=== PATIENT | female | born 1960 | race Caucasian/White ===

== ENCOUNTER 2018-03-31 06:17 | Day surgery (SDC) | payer OTHER ==
[2018-03-30 15:19] VITALS: BMI 28.5
[2018-03-31] MEDS ORDERED: ROPIVACAINE HCL 0.5% 30ML VIAL ONE (07:24)
[2018-03-31] MEDS ORDERED: DEXAMETHASONE SOD PHOSPHATE/PF 10 MG/ML SDV ONE (07:24)
[2018-03-31] MEDS ORDERED: MIDAZOLAM HCL 2 MG/2 ML SINGLE DOSE VIAL ONE ×4 (07:26→07:30)
[2018-03-31] MEDS ORDERED: DEXAMETHASONE SOD PHOSPHATE 4 MG/1 ML VIAL ONE (07:28)
[2018-03-31] MEDS ORDERED: ceFAZolin SODIUM 1 GM VIAL ONE (07:28)
[2018-03-31] MEDS ORDERED: LIDOCAINE HCL/PF 2% SDV 5ML VIAL ONE (07:28)
[2018-03-31] MEDS ORDERED: SODIUM CHLORIDE 0.9% P/F 10 ML VIAL IJ ONE (07:28)
[2018-03-31] MEDS ORDERED: ONDANSETRON 4 MG/2 ML VIAL ONE (07:28)
[2018-03-31] MEDS ORDERED: SUCCINYLCHOLINE CHLORIDE 200 MG/10 ML VIAL ONE (07:30)
[2018-03-31] MEDS ORDERED: PROPOFOL 20 ML ONE ×4 (07:30→08:45)
[2018-03-31] MEDS ORDERED: DEXMEDETOMIDINE HCL 200 MCG/2 ML ML IVPB ONE (07:37)
[2018-03-31] MEDS ORDERED: DESFLURANE GAS 240 ML BOTTLE IH ONE (07:37)
--- NOTE | 2018-03-31 08:06 | HP ---
Satellite H - Chief Complaint Chief Complaint: right shoulder pain - Past Medical History Allergies/Adverse Reactions: Allergies Allergy/AdvReac Type Severity Reaction Status Date / Time No Known Allergies Allergy Verified 03/30/18 15:19 - Current Medications Current Medications: Home Medications Medication Instructions Recorded Escitalopram Oxalate [Lexapro -] 20 mg PO DAILY 03/30/18 Levothyroxine [Synthroid -] 100 mcg PO DAILY 03/30/18 Lisinopril/Hydrochlorothiazide 1 each PO DAILY 03/30/18 [Lisinopril-Hctz 20-25 mg Tab] Alprazolam [Xanax] 0.5 mg PO TID 03/31/18 Meloxicam [Mobic] 15 mg PO DAILY 03/31/18 Oxycodone HCl/Acetaminophen 1 - 2 tab PO Q6H #30 tab MDD 6 03/31/18 [Percocet 5-325 mg Tablet] Zolpidem Tartrate [Ambien] 5 mg PO HS 03/31/18 Satellite Physical Exam - Physical Examination Vital Signs: Vital Signs Period Temp Pulse Resp BP Sys/Hicks Pulse Ox Last 24 Hr 97.9 F 84 18 99/66 General Appearance: Well Nourished, Well Developed, Alert & Oriented x3 ENT: Clear Lung: Normal air movement Heart: Regular rate & rhythm Extremities: Other (right shoulder- + ttp, decr rom , + empty can, + neer, + blackwood, nvi MRI + rct) Neurological: Intact, Alert, Oriented Satellite Impression/Plan - Impression/Plan Impression: right shoulder rct Operative Procedure: right shoulder arthroscopy with DEE BARNEY Date to be Performed: 03/31/18
[2018-03-31] MEDS ORDERED: ceFAZolin SODIUM 1 GM VIAL IVPB ONE (08:29)
[2018-03-31] MEDS ORDERED: ONDANSETRON 4 MG/2 ML VIAL IVPUSH PRN (08:46)
[2018-03-31] MEDS ORDERED: oxyCODONE HCL 5 MG TABLET PO PRN ×2 (08:46)
[2018-03-31] MEDS ORDERED: LACTATED RINGERS SOLUTION 1,000 ML IV SCH (09:00)
--- NOTE | 2018-03-31 09:08 | OP ---
Operative Note - Note: Operative Date: 03/31/18 ([facility]) Pre-Operative Diagnosis: right shoulder rct Operation: right shoulder arthroscopy with RCR, SAD Implants: 2 arthrex swivelocks Post-Operative Diagnosis: Same as Pre-op Surgeon: Natanael Grady Intake Coordinator: Oleg Tolliver) Anesthesiologist/CROP PEST CONTROL SPECIALIST: Neville Thomas Anesthesia: General, Local Specimens Removed: shavings Estimated Blood Loss (mls): 5 Operative Report Dictated: Yes
--- NOTE | 2018-03-31 11:41 | OP ---
DATE OF OPERATION: 03/31/2018 PREOPERATIVE DIAGNOSIS: Right rotator cuff tear. POSTOPERATIVE DIAGNOSIS: Right rotator cuff tear. PROCEDURE: Arthroscopy right shoulder, subacromial decompression, and arthroscopic right rotator cuff repair. SURGICAL ATTENDING: Natanael Grady MD RESTAURANT MANAGER: BOO Mejia, and Oleg Tolliver MD ANESTHESIA: Regional and general. CLOSURE: FiberWire and SwiveLock for rotator cuff, 3-0 nylon for skin. ESTIMATED BLOOD LOSS: Negligible. COMPLICATIONS: None. CONDITION: To the recovery room in stable condition. DESCRIPTION OF PROCEDURE: Patient taken to the operating room on March 31, 2018. Regional and general anesthesia was administered by the anesthesiologist. IV Kefzol was administered prophylactically prior to the case. The patient was placed in the beach chair position with all prominences well padded. Right shoulder area was prepped and draped in the usual sterile fashion. The posterior portal was made two fingerbreadths below the acromion first with a 15 blade then followed by a blunt trocar. Circumferential exam of the glenohumeral joint revealed the following: Significant glenohumeral joint loss of cartilage was seen throughout much of the humeral head and most of the glenoid as well and the joint was located; the labrum was intact. The biceps tendon was intact, as was its anchor. Subscapularis was intact through insertion. Looking superiorly, the supraspinatus was found to be very, very thin at its insertion. The rest of the rotator cuff tear was intact. The fluid was drained from the shoulder, trocar was removed. The posterior trocar was redirected in the subacromial space. Accessory lateral portal was made with a 15 blade followed by a blunt trocar. The bursal tissue in the subacromial space was debrided using the shaver. The large anterior spur on the acromion was debrided, giving sufficient height and space in the subacromial space. Coracoacromial ligament was left in situ due to the glenohumeral joint arthritis. Looking inferiorly, scar encasing the humeral head was debrided using the shaver and the ArthroCare device. The supraspinatus was found to be holding on by less than 5% of its thickness. This was completed using the shaver, exposing the greater tuberosity. the rotator cuff was burred with the bur to stimulate some bleeding bone. Multiple sutures were placed in horizontal mattress fashion through the supraspinatus and they were fixated to the greater tuberosity using two SwiveLock anchors. This pulled down the sutures snug and matting down to the greater tuberosity to the bleeding bone surface. Sutures were cut flush. Post-fixation, the shoulder was taken through range of motion and found to have no undue tension on the subacromial space and excellent clearance. The fluid was drained from the shoulder. The trocars were removed. The portals were closed with 3-0 nylon suture. A sterile pressure dressing followed by a shoulder immobilizer was applied. The patient was awoken from anesthesia and transferred to recovery room in stable condition. No complications. Estimated blood loss negligible. Oleg Tolliver MD, dictating for MD NATANAEL Khalil M.D. [id number]
[2018-03-31 14:48] VITALS: BP 112/60; PULSE 81; TEMP 97.9
--- NOTE | 2018-04-06 18:19 | PATH ---
Surgical Pathology Report Patient Name: MELLISSA HUANG [facility]. Rec. #: [id number] /Age/Gender: 1960 (Age: 57) / F Account: [id number] Location: [facility] SURGICAL Taken: 03/31/2018 Received: 03/31/2018 Reported: 04/06/2018 Physicians: Fidel Horton M.D. Specimen(s) Received RIGHT SHOULDER SHAVINGS Clinical History Impingement syndrome right shoulder Final Diagnosis SHOULDER SHAVINGS, RIGHT, ARTHROSCOPY, SUBACROMIAL DECOMPRESSION, ROTATOR CUFF REPAIR: FRAGMENTS OF BENIGN CARTILAGE, DENSE FIBROCONNECTIVE TISSUE, ADIPOSE TISSUE, REACTIVE SYNOVIUM, AND SKELETAL MUSCLE. Electronically Signed Sanjuana Andres M.D. Gross Description Received in formalin, labeled "right shoulder shavings" is a 4.8 x 4.0 x 0.4 cm. aggregate of hairston-yellow soft tissue fragments. A sales representative consultant portion is submitted in one cassette. 03/31/201803/31/2018
== END 2018-03-31 12:30 | disposition home or self-care (01) ==
LOC: JASU-SURG 06:17
PROVIDERS: ATTEND Orthopaedic Surgery
PROC: 0RNJ4ZZ Release Right Shoulder Joint, Percutaneous Endoscopic Approach (ICD-10-PCS; principal; 2018-03-31 08:00)
PROC: 0LQ14ZZ Repair Right Shoulder Tendon, Percutaneous Endoscopic Approach (ICD-10-PCS; 2018-03-31 08:00)
DX: M75.101 Unspecified rotator cuff tear or rupture of right shoulder, not specified as traumatic (principal)
CPT/HCPCS: 88304-TC; 94760

== ENCOUNTER 2018-09-19 06:35 | Inpatient (IN) | payer OTHER ==
[2018-09-14 13:12] VITALS: BMI 28.1
[2018-09-19] MEDS ORDERED: PROPOFOL 20 ML ONE (06:37)
[2018-09-19] MEDS ORDERED: LIDOCAINE HCL/PF 2% SDV 5ML VIAL ONE (06:37)
[2018-09-19] MEDS ORDERED: KETOROLAC TROMETHAMINE 30 MG/1 ML VIAL ONE (06:37)
[2018-09-19] MEDS ORDERED: SUCCINYLCHOLINE CHLORIDE 200 MG/10 ML VIAL ONE (06:39)
[2018-09-19] MEDS ORDERED: MIDAZOLAM HCL 2 MG/2 ML SINGLE DOSE VIAL ONE ×3 (06:41→08:25)
[2018-09-19] MEDS ORDERED: DEXAMETHASONE SOD PHOSPHATE/PF 10 MG/ML SDV ONE (06:43)
[2018-09-19] MEDS ORDERED: oxyCODONE HCL 10 MG SUSTAINED ACTING TABLET PO ONE (06:51)
[2018-09-19] MEDS ORDERED: CELECOXIB 200 MG CAPSULE PO ONE (06:51)
[2018-09-19] MEDS ORDERED: TRANEXAMIC ACID 1000 MG/10 ML VIAL IVPUSH ONE (06:51)
[2018-09-19] MEDS ORDERED: CEFAZOLIN 1 GM/D5W 1 GM/50 ML BAG IVPB ONE (06:51)
[2018-09-19] MEDS ORDERED: GABAPENTIN 300 MG CAPSULE (FP) PO ONE (06:51)
[2018-09-19] MEDS ORDERED: ceFAZolin SODIUM 1 GM VIAL ONE ×2 (07:06→08:23)
[2018-09-19] MEDS ORDERED: VANCOMYCIN 1,000 MG VIAL (RESTRICTED TO ID ONLY) ONE (07:06)
[2018-09-19] MEDS ORDERED: MAGNESIUM HYDROX 2400MG/30ML ORAL SUSPENSION 30 ML CUP PO PRN (07:55)
[2018-09-19] MEDS ORDERED: MAG HYDROX/AL HYDROX/SIMETH 30 ML UNIT-DOSE CUP PO PRN (07:55)
--- NOTE | 2018-09-19 07:57 | HP ---
Satellite [facility] - Chief Complaint Chief Complaint: left hip pain - Past Medical History Allergies/Adverse Reactions: Allergies Allergy/AdvReac Type Severity Reaction Status Date / Time No Known Allergies Allergy Verified 03/30/18 15:19 - Current Medications Current Medications: Home Medications Medication Instructions Recorded Escitalopram Oxalate [Lexapro -] 20 mg PO DAILY 03/30/18 Levothyroxine [Synthroid -] 100 mcg PO DAILY 03/30/18 Lisinopril/Hydrochlorothiazide 1 each PO DAILY 03/30/18 [Lisinopril-Hctz 20-25 mg Tab] Alprazolam [Xanax] 0.5 mg PO HS PRN 03/31/18 Satellite Physical Exam - Physical Examination Vital Signs: Vital Signs Period Temp Pulse Resp BP Sys/Hicks Pulse Ox Last 24 Hr 98.4 F 78 18 122/84 General Appearance: Well Nourished, Well Developed, Alert & Oriented x3 ENT: Clear Lung: Normal air movement Heart: Regular rate & rhythm Extremities: Other (left hip + ttp, decr rom, nvi, xrays show grade 4 hip djd) Neurological: Intact, Alert, Oriented Satellite Impression/Plan - Impression/Plan Impression: left hip djd Operative Procedure: left héctor thr Date to be Performed: 09/19/18
[2018-09-19] MEDS ORDERED: LACTATED RINGERS SOLUTION 1,000 ML IV SCH ×2 (08:00→10:30)
[2018-09-19] MEDS ORDERED: TRANEXAMIC ACID 1000 MG/10 ML VIAL ONE (08:23)
[2018-09-19] MEDS ORDERED: VANCOMYCIN 500 MG VIAL (RESTRICTED TO ID ONLY) IVPB ONE (09:56)
[2018-09-19] MEDS ORDERED: PATIENT'S OWN MEDICATION (NON-FORMULARY) (Lisinopril/Hydrochlorothiazide [Lisinopril-Hctz PO SCH (10:00)
--- NOTE | 2018-09-19 10:13 | OP ---
Operative Note - Note: Operative Date: 09/19/18 ([facility]) Pre-Operative Diagnosis: left hip djd Operation: left héctor thr Post-Operative Diagnosis: Same as Pre-op Surgeon: Natanael Grady Building Maintenance Technician: David Gould) Anesthesiologist/INSOLE ROUNDER: Steve Cheek Anesthesia: Spinal, Local Specimens Removed: femoral head Estimated Blood Loss (mls): 200 Operative Report Dictated: Yes
[2018-09-19] MEDS ORDERED: oxyCODONE HCL 5 MG TABLET PO PRN (10:26)
[2018-09-19] MEDS ORDERED: ONDANSETRON 4 MG/2 ML VIAL IVPUSH PRN (10:26)
[2018-09-19] MEDS: ACETAMINOPHEN 1000 MG/100 ML VIAL (NON FORMULARY) IVPB ONE ×2 (10:30→14:18)
[2018-09-19] MEDS: PANTOPRAZOLE 40 MG TABLET (FP) PO SCH (14:17)
[2018-09-19] MEDS: SENNOSIDES/DOCUSATE COMBO (SENNA PLUS) TABLET (UD) PO SCH ×2 (14:17→21:04)
[2018-09-19] MEDS: MULTIVITAMINS (DAILY MVI) TABLET (FP) PO SCH (14:17)
[2018-09-19] MEDS: oxyCODONE HCL 5 MG TABLET PO PRN ×2 (14:53→20:23)
--- NOTE | 2018-09-19 15:31 | OP ---
DATE OF OPERATION: 09/19/2018 PREOPERATIVE DIAGNOSIS: Degenerative joint disease, left hip. POSTOPERATIVE DIAGNOSIS: Degenerative joint disease, left hip. PROCEDURE: Left total hip replacement with robotic-assisted navigation (MAKOplasty). SURGICAL ATTENDING: Natanael Grady MD FURNACE ERECTOR: BOO Mejia SECOND DAYCARE MANAGER: Oleg Tolliver MD ANESTHESIA: Regional and spinal. CLOSURE: A Trident II press-fit 48-mm acetabulum with 3 adjuvant screws, a number 4 Accolade II femoral stem, a standard MDM head and long Dall-Miles cable for the femur, number 1 Vicryl for fascia, 0 and 2-0 for subcutaneous, and 3-0 Monocryl subcuticular with skin glue, 4-0 undyed Vicryl for pin sites. ESTIMATED BLOOD LOSS: Less than 100 mL. COMPLICATIONS: None. CONDITION: To recovery room in stable condition. DESCRIPTION OF OPERATIVE PROCEDURE: Patient taken to the operating room on September 19, 2018. Spinal and regional anesthesia was administered by the anesthesiologist. IV Kefzol administered prophylactically prior to the case. The patient was placed in the lateral decubitus position with all prominences well padded. The left hip area was prepped and draped in the usual sterile fashion. Three stab incisions were made over the iliac wing and crest a few centimeters up from the ASIS. Through these stab incisions, 3 threaded pins were drilled through the 2 tables of the ilium. Clamping to these pins was the navigation array. Next, our attention was turned to the hip. A posterolateral approach was used to gain access to the hip. A 12 cm curved longitudinal incision over the posterolateral aspect of the greater trochanter was incised. Hemostasis achieved with Bovie cautery. Sharp dissection was carried down to the level of the fascia, which was opened the entire length of the incision, spreading the gluteus jonathan fibers in their direction of origin. A Charnley retractor was placed in this layer, with care taken to protect the sciatic nerve. The superior third of the gluteus insertion was transected to release pressure on the sciatic nerve. Short external rotators were detached off the insertion to the greater trochanter, peeled off the capsule. A posterior capsulectomy was then performed. A checkpoint was malleted in the greater trochanter. This was used to get preoperative limb lengths and offset by measuring a point on the greater trochanter and the inferior pole of the patella. The hip was then dislocated. The femoral head was then osteotomized at the appropriate level. Anterior and posterior retractors were applied. Checkpoint was placed superiorly and registered with the navigation device. The hip was then registered with multiple sites in and around the acetabulum. Excellent registration was confirmed by "popping the bubbles." The acetabulum was then reamed to the appropriate depth and a 48-mm Trident II cup was then malleted in place, achieving excellent fixation. As there was some overhang posteriorly, we therefore placed adjuvant screws for fixation by drilling, depth gauging, and screwing with the appropriate size acetabular screws, achieving excellent fixation. A liner for the MDM was then clicked into place. Attention was directed to the femur. Proximal femur was prepared using serial broaches, and a number 4 stem achieved good fill. Trial reduction with a standard MDM head achieved equal limb lengths, was stable to marked flexion, at 90 degrees of flexion, and was stable marked adduction and internal rotation, had negative telescoping and positive hang test and good stability with external rotation and extension. Trial component was removed. It appeared that there might be a slight crack propagating from the cut surface along the trocar. We therefore placed a long Tujia-TeraView cable circumferentially flush to the bone for adjuvant fixation just in case there was a crack. The real component number 4 stem was then malleted into place to achieve excellent stability. A standard MDM head was then cold-welded. Range of motion, stability and limb lengths were as described earlier. The hip was pulse antibiotic irrigated. Vancomycin powder was placed in the hip joint. The fascia was then closed using number 1 Vicryl interrupted suture, 0 and 2-0 subcutaneous, and 3-0 V-Loc for skin. The checkpoints and the pins were removed. The pin sites were closed using 4-0 nylon. An Aquacel dressing was placed on both the hip and the ilium. Patient was placed in the supine position. Bilateral SCDs and an abduction pillow were applied. X-ray showed excellent position of the components. Patient awakened from anesthesia and transferred to recovery room in stable condition, no complication. Estimated blood loss approximately 100 mL. Fidel [id number]
[2018-09-19] MEDS: CEFAZOLIN 1 GM/D5W 1 GM/50 ML BAG IVPB SCH (16:20)
--- NOTE | 2018-09-19 17:34 | CONSULT ---
Consult Consult Specialty:: IM Referred by:: Dr Grady Reason for Consultation:: medical management - History of Present Illness Chief Complaint: left hip DJD. for left héctor THR - History Source History Provided By: Patient - Past Medical History Cardio/Vascular: Yes: HTN Psych: Yes: Anxiety Endocrine: Yes: Hypothyroidism - Alcohol/Substance Use Hx Alcohol Use: Yes (SOCIAL) - Smoking History Smoking history: Never smoked Have you smoked in the past 12 months: No Home Medications - Allergies Allergies/Adverse Reactions: Allergies Allergy/AdvReac Type Severity Reaction Status Date / Time No Known Allergies Allergy Verified 03/30/18 15:19 - Home Medications Home Medications: Ambulatory Orders Escitalopram Oxalate [Lexapro -] 20 mg PO DAILY 03/30/18 Levothyroxine [Synthroid -] 100 mcg PO DAILY 03/30/18 Lisinopril/Hydrochlorothiazide [Lisinopril-Hctz 20-25 mg Tab] 1 each PO DAILY Alprazolam [Xanax] 0.5 mg PO HS PRN 03/31/18 Aspirin [ASA -] 325 mg PO DAILY@0800 tablet 09/19/18 Oxycodone HCl/Acetaminophen [Percocet 5-325 mg Tablet -] 1 - 2 tab PO Q6H #50 tab MDD 8 09/19/18 Review of Systems - Review of Systems Constitutional: reports: No Symptoms Eyes: reports: No Symptoms HENT: reports: No Symptoms Neck: reports: No Symptoms Cardiovascular: reports: No Symptoms Respiratory: reports: No Symptoms Gastrointestinal: reports: No Symptoms Genitourinary: reports: No Symptoms Musculoskeletal: reports: Joint Pain Integumentary: reports: No Symptoms Neurological: reports: No Symptoms Endocrine: reports: No Symptoms Hematology/Lymphatic: reports: No Symptoms Psychiatric: reports: Anxiety Physical Exam Vital Signs: Vital Signs Temperature 97.4 F L 09/19/18 15:00 Pulse Rate 93 H 09/19/18 15:00 Respiratory Rate 16 09/19/18 15:00 Blood Pressure 92/66 09/19/18 15:00 O2 Sat by Pulse Oximetry (%) 100 09/19/18 13:18 Constitutional: Yes: Well Nourished, No Distress Eyes: Yes: WNL HENT: Yes: WNL Neck: Yes: WNL Cardiovascular: Yes: WNL Respiratory: Yes: WNL Renal/: Yes: WNL Musculoskeletal: Yes: Joint Stiffness Extremities: Yes: WNL Edema: No Peripheral Pulses WNL: Yes Integumentary: Yes: WNL Wound/Incision: Yes: Clean/Dry, Well Approximated Neurological: Yes: WNL Assessment/Plan 58 yo lady with left hip djd S/P left héctor thr. no complications. cont pain management. incentive spirometry. -GI, DVT prophylaxis. -cont lexapro, xanax for anxiety and depression -ID: treated with cefazolin empirically -HTN: on HCTZ, lisinopril at home. hold as BP on the soft side. -cont delgado softeners for opioid induced constipation -meds reviewed. blood work pending. -PT/OT/OOB as tolerated -assessment and plan discussed with pt and medical staff will follow up
[2018-09-20] MEDS: CEFAZOLIN 1 GM/D5W 1 GM/50 ML BAG IVPB SCH (00:58)
[2018-09-20] MEDS: ALPRAZolam 0.25 MG TABLET PO PRN ×2 (01:10→22:04)
[2018-09-20] MEDS: oxyCODONE HCL 5 MG TABLET PO PRN ×6 (01:10→22:04)
[2018-09-20 06:06] LABS: HBsAG SCREEN Negative (Negative)
[2018-09-20] MEDS: LEVOTHYROXINE NA 100 MCG TABLET (FP) PO SCH (06:06)
[2018-09-20 08:08] LABS: HEMATOCRIT 27.5 % (32.4-45.2); HEMOGLOBIN 9.2 GM/dl (10.7-15.3); MCH 30.6 pg (25.7-33.7); MCHC 33.4 g/dl (32.0-36.0); MEAN CELL VOLUME 91.6 fl (80-96); MEAN PLT VOLUME 9.6 fl (7.5-11.1); PLATELET COUNT 227 K/MM3 (134-434); RDW 13.9 % (11.6-15.6); WHITE BLOOD COUNT 17.6 K/mm3 (4.0-10.8)
--- NOTE | 2018-09-20 08:14 | PN ---
Progress Note (short form) - Note Progress Note: Ortho Pt seen and examined s/p left héctor thr pod #1 Selected Entries 09/20/18 05:41 Temperature 98.0 F Pulse Rate 80 Respiratory 20 Rate Blood Pressure 100/55 L Laboratory Tests 09/20/18 07:13 WBC Pending Hgb Pending Hct Pending Plt Count Pending dressing c/d/i, calf soft, nt nvi a/p PT hip precautions dvt ppx pain control d/c home tomorrow if stable
[2018-09-20] MEDS: ASPIRIN 325 MG TABLET PO SCH (09:08)
[2018-09-20] MEDS: MULTIVITAMINS (DAILY MVI) TABLET (FP) PO SCH (09:09)
[2018-09-20] MEDS: LISINOPRIL 20 MG TABLET (FP) PO SCH (09:09)
[2018-09-20] MEDS: HYDROCHLOROTHIAZIDE 25 MG TABLET (FP) PO SCH (09:09)
[2018-09-20] MEDS: ESCITALOPRAM OXALATE 20 MG TABLET (FP) PO SCH (09:10)
[2018-09-20] MEDS: SENNOSIDES/DOCUSATE COMBO (SENNA PLUS) TABLET (UD) PO SCH ×2 (09:10→22:04)
[2018-09-20] MEDS: PANTOPRAZOLE 40 MG TABLET (FP) PO SCH (09:10)
--- NOTE | 2018-09-20 15:22 | PN ---
Progress Note, Physician Chief Complaint: left hip DJD. s/p left héctor THR - Current Medication List Current Medications: Active Medications Al Hydroxide/Mg Hydroxide (Mylanta Oral Suspension -) 30 ml PO Q4H PRN PRN Reason: DYSPEPSIA Alprazolam (Xanax -) 0.5 mg PO HS PRN PRN Reason: ANXIETY Last Admin: 09/20/18 01:10 Dose: 0.5 mg Aspirin (Asa -) 325 mg PO DAILY@0800 [facility] Last Admin: 09/20/18 09:08 Dose: 325 mg Escitalopram Oxalate (Lexapro -) 20 mg PO DAILY [facility] Last Admin: 09/20/18 09:10 Dose: 20 mg Hydrochlorothiazide (Hctz -) 25 mg PO DAILY [facility] Last Admin: 09/20/18 09:09 Dose: Not Given Levothyroxine Sodium (Synthroid -) 100 mcg PO DAILY@0700 [facility] Last Admin: 09/20/18 06:06 Dose: 100 mcg Lisinopril (Prinivil) 20 mg PO DAILY [facility] Last Admin: 09/20/18 09:09 Dose: Not Given Magnesium Hydroxide (Milk Of Magnesia -) 30 ml PO PRN PRN PRN Reason: CONSTIPATION Multivitamins/Minerals/Vitamin C (Tab-A-Vit -) 1 tab PO DAILY [facility] Last Admin: 09/20/18 09:09 Dose: 1 tab Ondansetron HCl (Zofran Injection) 4 mg IVPUSH Q6H PRN PRN Reason: NAUSEA AND/OR VOMITING Oxycodone HCl (Roxicodone -) 10 mg PO Q4H PRN PRN Reason: PAIN LEVEL 6-10 Last Admin: 09/20/18 15:14 Dose: 10 mg Oxycodone HCl (Roxicodone -) 5 mg PO Q4H PRN PRN Reason: PAIN LEVEL 1-5 Pantoprazole Sodium (Protonix -) 40 mg PO DAILY [facility] Last Admin: 09/20/18 09:10 Dose: 40 mg Senna/Docusate Sodium (Pericolace -) 2 tablet PO BID [facility] Last Admin: 09/20/18 09:10 Dose: 2 tablet - Objective Vital Signs: Vital Signs Temperature 97.7 F 09/20/18 14:03 Pulse Rate 94 H 09/20/18 14:03 Respiratory Rate 18 09/20/18 14:03 Blood Pressure 113/64 09/20/18 14:03 O2 Sat by Pulse Oximetry (%) 100 09/20/18 14:03 Constitutional: Yes: Well Nourished, No Distress Eyes: Yes: WNL HENT: Yes: WNL Neck: Yes: WNL Cardiovascular: Yes: WNL Respiratory: Yes: WNL Gastrointestinal: Yes: WNL Musculoskeletal: Yes: WNL, Joint Stiffness Extremities: Yes: WNL Integumentary: Yes: WNL Wound/Incision: Yes: Clean/Dry, Well Approximated Neurological: Yes: WNL Psychiatric: Yes: WNL Labs: CBC, BMP 09/20/18 07:13 Assessment/Plan 58 yo lady with left hip djd S/P left héctor thr POD#1. c/o soome pain after PT. no complications. cont pain management. incentive spirometry. -GI, DVT prophylaxis. -cont lexapro, xanax for anxiety and depression -ID: treated with cefazolin empirically -HTN: on HCTZ, lisinopril at home. hold as BP on the soft side. -cont delgado softeners for opioid induced constipation -acute on chronic iron deficiency anemia: will monitor. her H&H on 09/08/18 was 13.4/39.7. will check AM CBC. Pt asymptomatic. -meds reviewed. blood work reviewed. post-op inflammatory. will monitor. -PT/OT/OOB as tolerated -assessment and plan discussed with pt and medical staff DC planned for tomorrow
[2018-09-21] MEDS: oxyCODONE HCL 5 MG TABLET PO PRN ×2 (06:38→09:57)
[2018-09-21] MEDS: LEVOTHYROXINE NA 100 MCG TABLET (FP) PO SCH (06:38)
[2018-09-21 08:13] LABS: BASO % 0.2 % (0-2.0); EOS % 1.1 % (0-4.5); HEMATOCRIT 26.5 % (32.4-45.2); HEMOGLOBIN 8.8 GM/dl (10.7-15.3); LYMPH % 16.7 % (8-40); MCH 30.4 pg (25.7-33.7); MCHC 33.2 g/dl (32.0-36.0); MEAN CELL VOLUME 91.4 fl (80-96); MEAN PLT VOLUME 9.6 fl (7.5-11.1); MONO % 10.3 % (3.8-10.2); NEUT % 71.7 % (42.8-82.8); PLATELET COUNT 201 K/MM3 (134-434); RDW 14.4 % (11.6-15.6); WHITE BLOOD COUNT 13.7 K/mm3 (4.0-10.8)
--- NOTE | 2018-09-21 08:19 | PN ---
Progress Note, Physician Chief Complaint: left hip DJD. s/p left héctor THR - Current Medication List Current Medications: Active Medications Al Hydroxide/Mg Hydroxide (Mylanta Oral Suspension -) 30 ml PO Q4H PRN PRN Reason: DYSPEPSIA Alprazolam (Xanax -) 0.5 mg PO HS PRN PRN Reason: ANXIETY Last Admin: 09/20/18 22:04 Dose: 0.5 mg Aspirin (Asa -) 325 mg PO DAILY@0800 [facility] Last Admin: 09/20/18 09:08 Dose: 325 mg Escitalopram Oxalate (Lexapro -) 20 mg PO DAILY [facility] Last Admin: 09/20/18 09:10 Dose: 20 mg Hydrochlorothiazide (Hctz -) 25 mg PO DAILY [facility] Last Admin: 09/20/18 09:09 Dose: Not Given Levothyroxine Sodium (Synthroid -) 100 mcg PO DAILY@0700 [facility] Last Admin: 09/21/18 06:38 Dose: 100 mcg Lisinopril (Prinivil) 20 mg PO DAILY [facility] Last Admin: 09/20/18 09:09 Dose: Not Given Magnesium Hydroxide (Milk Of Magnesia -) 30 ml PO PRN PRN PRN Reason: CONSTIPATION Multivitamins/Minerals/Vitamin C (Tab-A-Vit -) 1 tab PO DAILY [facility] Last Admin: 09/20/18 09:09 Dose: 1 tab Ondansetron HCl (Zofran Injection) 4 mg IVPUSH Q6H PRN PRN Reason: NAUSEA AND/OR VOMITING Oxycodone HCl (Roxicodone -) 10 mg PO Q4H PRN PRN Reason: PAIN LEVEL 6-10 Last Admin: 09/21/18 06:38 Dose: 10 mg Oxycodone HCl (Roxicodone -) 5 mg PO Q4H PRN PRN Reason: PAIN LEVEL 1-5 Pantoprazole Sodium (Protonix -) 40 mg PO DAILY [facility] Last Admin: 09/20/18 09:10 Dose: 40 mg Senna/Docusate Sodium (Pericolace -) 2 tablet PO BID [facility] Last Admin: 09/20/18 22:04 Dose: 2 tablet - Objective Vital Signs: Vital Signs Temperature 99.3 F 09/21/18 05:00 Pulse Rate 102 H 09/21/18 05:00 Respiratory Rate 18 09/21/18 05:00 Blood Pressure 117/74 09/21/18 05:00 O2 Sat by Pulse Oximetry (%) 96 09/21/18 05:00 Constitutional: Yes: Well Nourished Eyes: Yes: WNL HENT: Yes: WNL Neck: Yes: WNL Cardiovascular: Yes: WNL Respiratory: Yes: WNL Gastrointestinal: Yes: WNL Genitourinary: Yes: WNL Musculoskeletal: Yes: Joint Stiffness Extremities: Yes: WNL Edema: No Wound/Incision: Yes: Clean/Dry, Well Approximated Neurological: Yes: WNL Assessment/Plan 58 yo lady with left hip djd S/P left héctor thr POD#2. no complications. cont pain management. incentive spirometry. -GI, DVT prophylaxis. -cont lexapro, xanax for anxiety and depression -ID: treated with cefazolin empirically -HTN: on HCTZ, lisinopril at home. hold as BP on the soft side. -cont delgado softeners for opioid induced constipation -acute on chronic iron deficiency anemia: will monitor. her H&H on 09/08/18 was 13.4/39.7. awaiting AM CBC. Pt asymptomatic. -meds reviewed. blood work reviewed. post-op inflammatory. will monitor. -PT/OT/OOB as tolerated -assessment and plan discussed with pt and medical staff DC planned for today
--- NOTE | 2018-09-21 08:24 | PN ---
Progress Note (short form) - Note Progress Note: Ortho Pt seen and examined s/p left héctor thr pod #2 Selected Entries 09/21/18 05:00 Temperature 99.3 F Pulse Rate 102 H Respiratory 18 Rate Blood Pressure 117/74 Laboratory Tests 09/20/18 07:13 WBC 17.6 H Hgb 9.2 L Hct 27.5 L Plt Count 227 dressing c/d/i, calf soft, nt nvi a/p f/u h/h from today PT hip precautions dvt ppx pain control d/c home today if stable
--- NOTE | 2018-09-21 08:25 | DS ---
Physical Examination Vital Signs: Vital Signs Temperature 99.3 F 09/21/18 05:00 Pulse Rate 102 H 09/21/18 05:00 Respiratory Rate 18 09/21/18 05:00 Blood Pressure 117/74 09/21/18 05:00 O2 Sat by Pulse Oximetry (%) 96 09/21/18 05:00 Discharge Summary Reason For Visit: OSTEOARTHRITIS Procedures: Principal: left thr Hospital Course: admitted for elective left héctor thr, uneventful post-op, stable for d/c Condition: Good - Instructions Diet, Activity, Other Instructions: Post-op Instructions-Total Hip Replacement Call the office for a follow-up appointment in 1 week - [phone] Aspirin 325mg daily for 6 weeks. Pain medication was sent into your pharmacy. Apply Graduated Compression Stockings (TEDs) to both lower extremities- remove daily for hygiene ONLY Apply Sequential Compression Device (SCDs) to both Lower extremities remove for PT and hygiene ONLY Apply cold packs to affected area for 15 minutes every 2 hours. Physical Therapist will come to your home for the first 5 days. You will be set up with outpatient PT at your first post-operative visit. Patient may ambulate as tolerated-encourage self care (at least every 2-3 hours while awake) with walker or cane Maintain Aquacel (waterproof) dressing to operative wound (will be removed by surgeon at first office visit) Shower with Aquacel dressing in place-if Aquacel integrity compromised, remove and apply dry sterile dressing and notify Orthopedist. DO NOT SHOWER unless Orthopedists approves without Aquacel dressing CONTACT THE OFFICE FOR ANY CHANGE IN YOUR CONDITION (for example-fever greater than 102 degrees, excessive bleeding from operative site, purulent drainage, severe swelling or pain) GO TO THE EMERGENCY ROOM IF THERE IS A MEDICAL EMERGENCY Hip Precautions: * Keep a rolled towel under affected heel while in bed or chair (to keep knee in extension) * Dependent upon approach: * Posterior - do not cross legs; do not sit on low chairs or toilets. * If you have any questions, please do not hesitate to call the office - [phone]. Referrals: Oleg Tolliver MD [Staff Physician] - Disposition: VNS/HOME HEALTH CARE - Home Medications Comprehensive Discharge Medication List: Ambulatory Orders Escitalopram Oxalate [Lexapro -] 20 mg PO DAILY 03/30/18 Levothyroxine [Synthroid -] 100 mcg PO DAILY 03/30/18 Lisinopril/Hydrochlorothiazide [Lisinopril-Hctz 20-25 mg Tab] 1 each PO DAILY Alprazolam [Xanax] 0.5 mg PO HS PRN 03/31/18 Aspirin [ASA -] 325 mg PO DAILY@0800 tablet 09/19/18 Oxycodone HCl/Acetaminophen [Percocet 5-325 mg Tablet -] 1 - 2 tab PO Q6H #50 tab MDD 8 09/19/18
[2018-09-21] MEDS: ASPIRIN 325 MG TABLET PO SCH (08:30)
[2018-09-21 08:45] VITALS: PULSE 115
[2018-09-21] MEDS: ESCITALOPRAM OXALATE 20 MG TABLET (FP) PO SCH (09:39)
[2018-09-21] MEDS: SENNOSIDES/DOCUSATE COMBO (SENNA PLUS) TABLET (UD) PO SCH (09:40)
[2018-09-21] MEDS: PANTOPRAZOLE 40 MG TABLET (FP) PO SCH (09:40)
[2018-09-21] MEDS: MULTIVITAMINS (DAILY MVI) TABLET (FP) PO SCH (09:40)
[2018-09-21] MEDS: LISINOPRIL 20 MG TABLET (FP) PO SCH (09:44)
[2018-09-21] MEDS: HYDROCHLOROTHIAZIDE 25 MG TABLET (FP) PO SCH (09:44)
[2018-09-21 09:47] VITALS: BP 137/70; TEMP 98.6
--- NOTE | 2018-09-22 09:57 | PATH ---
Surgical Pathology Report Patient Name: MELLISSA HUANG Med. Rec. #: [id number] /Age/Gender: 1960 (Age: 58) / F Account: [id number] Location: [facility] MED-SURG Taken: 09/19/2018 Received: 09/19/2018 Reported: 09/22/2018 Physicians: Natanael Grady M.D. Specimen(s) Received LEFT FEMORAL HEAD Clinical History Osteoarthritis left hip Final Diagnosis BONE, LEFT FEMORAL HEAD, REPLACEMENT: DEGENERATIVE JOINT DISEASE. Electronically Signed Devaughn Balbuena M.D. Gross Description Received in formalin, labeled "left femoral head," is a 4.2 x 4.2 x 3.9 cm. femoral head with a 0.2 cm length portion of femoral neck attached. The margin of resection is smooth. There is a 2.5 cm in greatest dimension area of eburnation present. The remaining articular surface is hairston-brown and diffusely granular. The underlying trabecular bone is yellow and hard. A retail field representative section is submitted in one cassette, following decalcification. /09/20/2018 [facility]09/20/2018
== END 2018-09-21 11:44 | disposition home health service (06) | DRG 470 ==
LOC: FM/S 06:35
PROVIDERS: ADMIT Orthopaedic Surgery; ATTEND Orthopaedic Surgery
PROC: 8E0W0CZ Robotic Assisted Procedure of Trunk Region, Open Approach (ICD-10-PCS; 2018-09-19)
PROC: 0SRB0JZ Replacement of Left Hip Joint with Synthetic Substitute, Open Approach (ICD-10-PCS; principal; 2018-09-19 08:35)
DX: M16.12 Unilateral primary osteoarthritis, left hip (principal); I10 Essential (primary) hypertension; E03.9 Hypothyroidism, unspecified; F41.9 Anxiety disorder, unspecified; D50.9 Iron deficiency anemia, unspecified
CPT/HCPCS: 36415; 73502-TC-LT-FY; 84460; 85025; 85027; 86803; 87340; 87389; 88304-TC; 88311-TC; 94760; 97116-GP; 97163-GP; J0131

== ENCOUNTER 2019-03-29 06:09 | Day surgery (SDC) | payer OTHER ==
[2019-03-28 13:25] VITALS: BMI 27.9
[2019-03-29 06:34] LABS: URINE APPEARANCE CLEAR; URINE BILIRUBIN NEGATIVE (NEGATIVE); URINE COLOR YELLOW; URINE GLUCOSE (UA) NEGATIVE (NEGATIVE); URINE KETONE NEGATIVE (NEGATIVE); URINE LEUK ESTERASE NEGATIVE (NEGATIVE); URINE NITRITE NEGATIVE (NEGATIVE); URINE PROTEIN NEGATIVE (NEGATIVE); URINE UROBILINOGEN 0.2 mg/dL (0.2-1.0)
[2019-03-29] MEDS ORDERED: PROPOFOL 20 ML ONE (07:39)
[2019-03-29] MEDS ORDERED: MIDAZOLAM HCL 2 MG/2 ML SINGLE DOSE VIAL ONE ×3 (07:39→08:09)
[2019-03-29] MEDS ORDERED: ROCURONIUM BROMIDE 50 MG/5 ML SYRINGE ONE ×2 (07:41→10:00)
[2019-03-29] MEDS ORDERED: ROPIVACAINE HCL 0.5% 30ML VIAL ONE (07:51)
--- NOTE | 2019-03-29 07:51 | HP ---
Satellite PMH - Chief Complaint Chief Complaint: right shoulder pain - Past Medical History Allergies/Adverse Reactions: Allergies Allergy/AdvReac Type Severity Reaction Status Date / Time No Known Allergies Allergy Verified 03/28/19 13:24 Cardiovascular: Yes: HTN Endocrine: Yes: Hypothyroidism - Current Medications Current Medications: Home Medications Medication Instructions Recorded Escitalopram Oxalate [Lexapro -] 20 mg PO DAILY 03/30/18 Levothyroxine [Synthroid -] 100 mcg PO DAILY 03/30/18 Lisinopril/Hydrochlorothiazide 1 each PO DAILY 03/30/18 [Lisinopril-Hctz 20-25 mg Tab] Alprazolam [Xanax] 0.5 mg PO HS PRN 03/31/18 Oxycodone HCl/Acetaminophen 1 - 2 tab PO Q6H #50 tab MDD 8 09/19/18 [Percocet 5-325 mg Tablet -] Satellite Physical Exam - Physical Examination Vital Signs: Vital Signs Period Temp Pulse Resp BP Sys/Hicks Pulse Ox Last 24 Hr 97.8 F-97.8 F 83-83 20-20 126-126/86-86 96 General Appearance: Well Nourished, Well Developed, Alert & Oriented x3 ENT: Clear Lung: Normal air movement Extremities: Other (right shoulder- + ttp, dec rom , nvi, xrays show GH OA with high riding humerus, previous RCR) Neurological: Intact, Alert, Oriented Satellite Impression/Plan - Impression/Plan Impression: right shoulder chronic RC arthropathy, OA Operative Procedure: right reverse TSA Date to be Performed: 03/29/19
[2019-03-29] MEDS ORDERED: ceFAZolin 2 GRAM PREMIX BAG IVPB ONE (08:50)
[2019-03-29] MEDS ORDERED: EPHEDRINE SULFATE/0.9% NACL/PF 50 MG/10 ML SYRINGE NR ONE (09:21)
[2019-03-29] MEDS ORDERED: NEOSTIGMINE METHYLSULFATE 0.5 MG/ML - 10 ML MDV ONE (10:17)
[2019-03-29] MEDS ORDERED: ceFAZolin SODIUM 1 GM VIAL ONE ×3 (10:18→23:47)
[2019-03-29] MEDS ORDERED: GLYCOPYRROLATE 0.2 MG/1 ML VIAL ONE (10:18)
[2019-03-29] MEDS ORDERED: KETOROLAC TROMETHAMINE 30 MG/1 ML VIAL ONE (10:18)
[2019-03-29] MEDS ORDERED: DEXAMETHASONE SOD PHOSPHATE 4 MG/1 ML VIAL ONE (10:18)
[2019-03-29] MEDS ORDERED: ALPRAZolam 0.25 MG TABLET PO PRN (10:47)
--- NOTE | 2019-03-29 10:55 | OP ---
Operative Note - Note: Operative Date: 03/29/19 ([facility]) Pre-Operative Diagnosis: right shoulder chronic RC arthropathy, GH OA Operation: right reverse TSA Post-Operative Diagnosis: Same as Pre-op Surgeon: Natanael Grady Propulsion Systems Engineer: David Gould Anesthesia: General, Local Specimens Removed: humeral head Estimated Blood Loss (mls): 150
[2019-03-29] MEDS ORDERED: ONDANSETRON 4 MG/2 ML VIAL IVPUSH PRN (11:50)
[2019-03-29] MEDS ORDERED: traMADol HCL 50 MG TABLET PO PRN (11:51)
[2019-03-29] MEDS ORDERED: LACTATED RINGERS SOLUTION 1,000 ML IV SCH (12:00)
[2019-03-29] MEDS ORDERED: DEXTROSE 5%-WATER - 50 ML IVPB ONE ×2 (16:55→23:47)
[2019-03-29] MEDS: CEFAZOLIN 1 GM in DEXTROSE 5%-WATER - 50 ML IVPB SCH (17:02)
[2019-03-29] MEDS: oxyCODONE HCL 5 MG TABLET PO PRN ×2 (17:03→20:47)
[2019-03-29] MEDS: ACETAMINOPHEN 325 MG TABLET (FP) PO SCH (17:04)
[2019-03-29] MEDS: oxyCODONE HCL 10 MG SUSTAINED ACTING TABLET PO SCH (21:36)
[2019-03-30] MEDS: CEFAZOLIN 1 GM in DEXTROSE 5%-WATER - 50 ML IVPB SCH ×2 (00:24→08:12)
[2019-03-30] MEDS: ACETAMINOPHEN 325 MG TABLET (FP) PO SCH ×4 (00:24→11:12)
[2019-03-30] MEDS: oxyCODONE HCL 5 MG TABLET PO PRN ×5 (00:26→13:08)
[2019-03-30] MEDS ORDERED: LEVOTHYROXINE NA 100 MCG TABLET (FP) PO SCH (07:00)
[2019-03-30] MEDS ORDERED: DEXTROSE 5%-WATER - 50 ML IVPB ONE (07:58)
[2019-03-30] MEDS ORDERED: ceFAZolin SODIUM 1 GM VIAL ONE (07:58)
--- NOTE | 2019-03-30 07:59 | CONSULT ---
Consult - Past Medical History Cardio/Vascular: Yes: HTN Psych: Yes: Anxiety Endocrine: Yes: Hypothyroidism - Alcohol/Substance Use Hx Alcohol Use: Yes (SOCIAL) - Smoking History Smoking history: Never smoked Have you smoked in the past 12 months: No Home Medications - Allergies Allergies/Adverse Reactions: Allergies Allergy/AdvReac Type Severity Reaction Status Date / Time No Known Allergies Allergy Verified 03/28/19 13:24 - Home Medications Home Medications: Ambulatory Orders Escitalopram Oxalate [Lexapro -] 20 mg PO DAILY 03/30/18 Levothyroxine [Synthroid -] 100 mcg PO DAILY 03/30/18 Lisinopril/Hydrochlorothiazide [Lisinopril-Hctz 20-25 mg Tab] 1 each PO DAILY Alprazolam [Xanax] 0.5 mg PO HS PRN 03/31/18 Oxycodone HCl/Acetaminophen [Percocet 5-325 mg Tablet] 1 - 2 tab PO Q6H #50 tab MDD 8 09/19/18 Oxycodone HCl/Acetaminophen [Percocet 5-325 mg Tablet] 1 - 2 combo PO Q6H #40 tablet MDD 6 03/29/19 Review of Systems - Review of Systems Cardiovascular: reports: No Symptoms Respiratory: reports: No Symptoms Gastrointestinal: reports: No Symptoms Musculoskeletal: reports: Joint Pain Neurological: reports: No Symptoms Physical Exam Vital Signs: Vital Signs Temperature 97.4 F L 03/30/19 06:42 Pulse Rate 89 03/30/19 06:42 Respiratory Rate 20 03/30/19 06:42 Blood Pressure 130/80 03/30/19 06:42 O2 Sat by Pulse Oximetry (%) 99 03/29/19 15:31 Cardiovascular: Yes: Regular Rate and Rhythm Respiratory: Yes: Regular, CTA Bilaterally Gastrointestinal: Yes: Normal Bowel Sounds, Soft. No: Tenderness Musculoskeletal: Yes: Joint Stiffness, Other (dressing intact) Problem List - Problems (1) S/P shoulder surgery Assessment/Plan: Operative Date: 03/29/19 ([facility]) Pre-Operative Diagnosis: right shoulder chronic RC arthropathy, GH OA Operation: right reverse TSA Post-Operative Diagnosis: Same as Pre-op Surgeon: Natanael Grady\ per Ortho Code(s): Z98.890 - OTHER SPECIFIED POSTPROCEDURAL STATES (2) HTN (hypertension) Assessment/Plan: Vital Signs Period Temp Pulse Resp BP Sys/Hicks Pulse Ox Last 24 Hr 97.4 F-97.8 F 80-112 16-300 91-148/57-90 96-100 Lisinopril [Prinivil] 20 mg PO DAILY Code(s): I10 - ESSENTIAL (PRIMARY) HYPERTENSION (3) Hypothyroid Assessment/Plan: Levothyroxine [Synthroid -] 100 mcg PO DAILY@0700 Code(s): E03.9 - HYPOTHYROIDISM, UNSPECIFIED
[2019-03-30] MEDS ORDERED: ESCITALOPRAM OXALATE 10 MG TABLET (FP) ONE (09:05)
[2019-03-30 09:23] VITALS: BP 148/90; PULSE 93; TEMP 97.6
[2019-03-30] MEDS: oxyCODONE HCL 10 MG SUSTAINED ACTING TABLET PO SCH (09:24)
[2019-03-30] MEDS ORDERED: ESCITALOPRAM OXALATE 20 MG TABLET (FP) PO SCH (10:00)
[2019-03-30] MEDS ORDERED: HYDROCHLOROTHIAZIDE 25 MG TABLET (FP) PO SCH (10:00)
[2019-03-30] MEDS ORDERED: LISINOPRIL 20 MG TABLET (FP) PO SCH (10:00)
--- NOTE | 2019-03-30 13:04 | PN ---
Progress Note (short form) - Note Progress Note: Ortho Pt seen and examined s/p right reverse TSA pod #1 Selected Entries 03/30/19 09:22 Temperature 97.6 F Pulse Rate 93 H Respiratory 20 Rate Blood Pressure 148/90 dressing c/d/i, good rom of elbow,wrist and hand nvi a/p PT ROM exercises pain control d/c home today f/u in 1-2 weeks
--- NOTE | 2019-03-30 13:05 | DS ---
Physical Examination Vital Signs: Vital Signs Temperature 97.6 F 03/30/19 09:22 Pulse Rate 93 H 03/30/19 09:22 Respiratory Rate 20 03/30/19 09:22 Blood Pressure 148/90 03/30/19 09:22 O2 Sat by Pulse Oximetry (%) 99 03/29/19 15:31 Discharge Summary Problems reviewed: Yes Reason For Visit: OSTEOARTHRITIS RIGHT SHOULDER Current Active Problems HTN (hypertension) (Acute) Hypothyroid (Acute) S/P shoulder surgery (Acute) Procedures: Principal: right reverse TSA Hospital Course: admitted for elective right reverse TSA, post-op per protocol, stable for d/c Condition: Good - Instructions Diet, Activity, Other Instructions: Post -op Instruction Sheet - Shoulder Surgery - Sling/Immobilizer : You have been placed in a sling or shoulder immobilizer. As long as you are wearing this, your shoulder is well protected. You may come out of the sling to dress , or do exercises as directed. You may bend and straighten the elbow, and move your wrist and fingers, but DO NOT use your own muscles to move your elbow away from your side until directed to do so. Please sleep with the sling on. You may find it more comfortable to sleep with a small pillow behind your elbow, or in a recliner. To wash your armpit, you may lean slightly forward and let your arm dangle slightly away from your side and wash with a washcloth. - Use an ice bag/pack on the shoulder for 15 minutes every 2 hours. - Pain medication was sent to your Pharmacy. - Keep your dressing clean and dry. Please call the office to make an appointment for 1 week after surgery. Your dressing will be removed at that time. - No Lifting. - Starting 1-2 days after surgery, you may take your arm out of the sling 3 times a day to bend and straighten your elbow and wrist to prevent stiffness. If only an arthroscopy was performed and NO repairs, you may move your shoulder as tolerated. If a rotator cuff/labral repair was performed, DO NOT move your shoulder until instructed by surgeon. - Please call the office at [phone] if there are any questions or concerns. Referrals: Natanael Grady MD [Staff Physician] - Disposition: HOME - Home Medications Comprehensive Discharge Medication List: Ambulatory Orders Escitalopram Oxalate [Lexapro -] 20 mg PO DAILY 03/30/18 Levothyroxine [Synthroid -] 100 mcg PO DAILY 03/30/18 Lisinopril/Hydrochlorothiazide [Lisinopril-Hctz 20-25 mg Tab] 1 each PO DAILY Alprazolam [Xanax] 0.5 mg PO HS PRN 03/31/18 Oxycodone HCl/Acetaminophen [Percocet 5-325 mg Tablet] 1 - 2 tab PO Q6H #50 tab MDD 8 09/19/18 Oxycodone HCl/Acetaminophen [Percocet 5-325 mg Tablet] 1 - 2 combo PO Q6H #40 tablet MDD 6 03/29/19
--- NOTE | 2019-04-02 16:21 | PATH ---
Surgical Pathology Report Patient Name: MELLISSA HUANG Med. Rec. #: [id number] /Age/Gender: 1960 (Age: 58) / F Account: [id number] Location: AMBULATORY SURG Taken: 03/29/2019 Received: 03/29/2019 Reported: 04/02/2019 Physicians: Natanael Grady M.D. Specimen(s) Received HUMERAL HEAD, RIGHT Clinical History Osteoarthritis right shoulder Final Diagnosis HUMERAL HEAD, RIGHT, TOTAL SHOULDER REPLACEMENT: BONY WITH DEGENERATIVE JOINT DISEASE. Electronically Signed Sanjuana Andres M.D. Gross Description Received in formalin labeled "humeral head," is a 6.0 x 4.5 x 3.0 cm portion of bone, consistent with a humeral head. The margin of resection is smooth. The articular surface displays a 3 cm in greatest dimension area of eburnation. The remaining articular surface is hairston-yellow and diffusely granular and nodular. There is a white plastic screw identified within the specimen. The underlying trabecular bone is markedly softened. A telephone sales representative section is submitted in one cassette, following decalcification. 03/30/2019 [facility]03/30/2019
--- NOTE | 2019-04-18 09:07 | SPEC ---
DATE OF OPERATION: 03/29/2019 PREOPERATIVE DIAGNOSIS: Right shoulder glenohumeral osteoarthritis and rotator cuff pathology. POSTOPERATIVE DIAGNOSIS: Right shoulder glenohumeral osteoarthritis and rotator cuff pathology. PROCEDURE: Right shoulder reverse total shoulder replacement. SURGEON: Génesis Cunningham MD MARINE TECHNICIAN: BOO Mejia ANESTHESIOLOGIST: Ashok Sepulveda MD ANESTHESIA: Right interscalene block with LMA anesthesia. DRAINS: None. COMPLICATIONS: None. SPECIMEN: Right humeral head. BLOOD LOSS: 75 mL. BLOOD GIVEN: None. FLUID REPLACEMENT: 1000 mL. IMPLANTS: Theodore ReUnion System Right Reverse Total Shoulder Replacement size No. 10 humeral stem noncemented, 6 x 32 baseplate, 6-mm constrained liner, 32-mm glenosphere and baseplate with 4 screws from 16 to 24 mm in length. INDICATIONS: This patient is a 58-year-old female with a preoperative diagnosis of severe right shoulder dysfunction including osteoarthritis of the glenohumeral joint, severe pain, significant pathology of the rotator cuff, significant weakness and overall dysfunction. After understanding the potential risks, complications, alternatives and benefits of surgery versus nonsurgical treatment patient elected to undergo this procedure. Patient understands we are doing a reverse total shoulder replacement. She will never have a normal shoulder. She will never had normal function or strength. The goal is to minimize or eliminate pain and maximize overall function. She understands she might need extensive physical therapy. There is a lifelong risk of infection and need for additional surgery. She understands these and other potential risks and complications were discussed. It was elected to go forward with this procedure. DESCRIPTION OF PROCEDURE: The patient received a right interscalene block in the holding area, was brought into the operating theater. LMA anesthesia was induced. She was placed into the beach-chair position with ample padding throughout. The right upper extremity was prepped and draped in a sterile fashion. A deltopectoral approach incision was marked out using the coracoid and mid aspect of the proximal humerus as landmarks. The incision was made with the No. 15 scalpel blade. Subcutaneous hemostasis was achieved with a Bovie cautery. Dissection was done through the superficial fascia. Blunt dissection was done with my finger in the deltopectoral interval. The cephalic vein was retracted medially. The Gelpi self-retaining retractors were placed into the wound. I found the conjoined tendon off the coracoid and used the Bovie to incise lateral to it. I was then able to cut down to bone and preserve the medial and lateral capsular flaps. The rotator cuff subscapularis was very deficient. I then peeled the soft tissues, including the anterior aspect of the deltoid insertion off the humerus. The biceps tendon was seen to be frayed, degenerated out of its groove, and therefore I did a biceps tenolysis. Appropriate Fukuda and pickle-fork retractors were placed into the wound, exposing the proximal humerus. I was able to easily dislocate it anteriorly. It was extremely arthritic. Next, using the external guide and a broach, I used the oscillating saw to do a cut at the articular margin. Osteophytes were removed with the rongeur. Some soft tissue was removed with the Bovie. I was able to expose the proximal humerus quite well. Next, using the standard technique, using the mymxlog Reverse Total Shoulder Replacement System, we used first the starting awl and then the sequential hand broaches until we had cortical chatter. Then we used the humeral stem-shape broaches and mallet. We eventually seated a 10-size stem that had excellent cortical contact and was very stable throughout. We did not need to use the calcar reamer as the humeral cut was at the right angle. Next, our attention was turned to the glenoid. The Bovie was used to remove soft tissue, including some capsular attachments and the labrum. Retractors were placed into the wound to retract the humerus and expose the glenoid. With excellent direct visualization, we then put on the glenoid glenosphere, lining it up appropriately and put in the 3.2-mm guidewire. We went through 2 cortices. We then used the guidewire to do the glenoid reamer. We were able to ream the glenoid until we got bleeding subchondral bone. More bone was taken inferiorly than superiorly, but it was concentric. The guidewire was then removed, and we put on the actual 32 x 6-mm glenoid baseplate, held it in place with a 16-mm central screw. Then using the typical standard technique, we put in superior, inferior, and posterior screws, which were 16, 20 , and 24 mm in length, respectively. We had excellent compression of the glenoid baseplate against the glenoid and overall concentric fit. Next, we put on a 32-mm glenosphere. This was the actual implant, impacted in place, and it was quite stable. Next, our attention was turned to the humerus. We cleaned up the humeral shaft, put in an actual size 10 humeral press-fit porous-coated stem and used the mallet to put it down to the appropriate level. We then trialed the size of the humeral component, and it ended up being a 6 mm constrained liner. It was extremely stable. In fact, it was very difficult to dislocate. The area was copiously irrigated and washed out. The capsule was closed anteriorly with several No. 1 Ti-Cron sutures, the deep fascial layer closed with No. 1 Ti-Cron, and the superficial deltoid fascia closed with 0 Vicryl suture. A 2-0 Vicryl was used to close the deep dermal layer, and final skin reapproximation was done with a running subcuticular 3-0 V-Loc suture. The area was then washed and dried, covered with a 10-inch Aquacel dressing. The patient was extubated. There was total blood loss of 75 mL. There were no complications during the case. The shoulder immobilizer was placed in the operating room, and she was brought to the regular recovery room in stable condition. Total operative time was about 1-1/2 hours. GÉNESIS CUNNINGHAM M.D. [id number]
== END 2019-03-30 14:36 | disposition home or self-care (01) ==
LOC: JASUSAT 06:09 → J6S 14:19 → JASUSAT 03-30 14:36
PROVIDERS: ATTEND Orthopaedic Surgery
PROC: 0RRJ00Z Replacement of Right Shoulder Joint with Reverse Ball and Socket Synthetic Substitute, Open Approach (ICD-10-PCS; principal; 2019-03-29 08:00)
DX: M19.011 Primary osteoarthritis, right shoulder (principal); M25.511 Pain in right shoulder
CPT/HCPCS: 81003; 88304-TC; 88311-TC; 94760; 97116-GP; 97161-GP

== ENCOUNTER 2020-02-29 08:22 | Day surgery (SDC) | payer OTHER ==
[2020-02-27 15:36] VITALS: BMI 30.2
[2020-02-29] MEDS ORDERED: LIDOCAINE HCL/PF 2% SDV 5ML VIAL ONE (08:37)
[2020-02-29] MEDS ORDERED: PROPOFOL 20 ML ONE ×2 (08:38)
[2020-02-29 10:25] VITALS: TEMP 97.8
[2020-02-29 10:39] VITALS: BP 110/65; PULSE 85
== END 2020-02-29 10:39 | disposition home or self-care (01) ==
LOC: FASU-ENDO 08:22
PROVIDERS: ATTEND Internal Medicine Gastroenterology
PROC: 0DB68ZX Excision of Stomach, Via Natural or Artificial Opening Endoscopic, Diagnostic (ICD-10-PCS; 2020-02-29)
PROC: 0DB48ZX Excision of Esophagogastric Junction, Via Natural or Artificial Opening Endoscopic, Diagnostic (ICD-10-PCS; principal; 2020-02-29 09:53)
DX: Z09 Encounter for follow-up examination after completed treatment for conditions other than malignant neoplasm (principal); Z87.19 Personal history of other diseases of the digestive system; K29.50 Unspecified chronic gastritis without bleeding; K21.00 Gastro-esophageal reflux disease with esophagitis, without bleeding
CPT/HCPCS: 88305-TC; 88342-TC

== ENCOUNTER 2020-12-02 05:59 | Day surgery (SDC) | payer OTHER ==
[2020-11-26 14:18] VITALS: BMI 30.2
[2020-12-02] MEDS ORDERED: TRANEXAMIC ACID 1000 MG/10 ML VIAL IVPUSH ONE (06:51)
[2020-12-02] MEDS ORDERED: CEFAZOLIN 2 GM in DEXTROSE 5%-WATER - 50 ML IVPB ONE (06:51)
[2020-12-02] MEDS ORDERED: CELECOXIB 200 MG CAPSULE ONE (06:58)
[2020-12-02] MEDS: CELECOXIB 200 MG CAPSULE PO ONE ×2 (07:05→19:52)
[2020-12-02] MEDS ORDERED: BUPIVACAINE HCL/PF 0.5% (5 MG/ML) 30 ML VIAL IJ ONE ×2 (07:05→07:52)
[2020-12-02] MEDS ORDERED: MIDAZOLAM HCL 2 MG/2 ML SINGLE DOSE VIAL ONE (07:05)
[2020-12-02] MEDS ORDERED: PROPOFOL 20 ML ONE ×2 (07:07→08:46)
[2020-12-02] MEDS ORDERED: ceFAZolin SODIUM 1 GM VIAL ONE (07:08)
[2020-12-02] MEDS ORDERED: SUCCINYLCHOLINE CHLORIDE 200 MG/10 ML SYRINGE ONE (07:08)
[2020-12-02] MEDS ORDERED: VANCOMYCIN 1,000 MG VIAL (RESTRICTED TO ID ONLY) ONE (07:08)
[2020-12-02] MEDS ORDERED: LIDOCAINE HCL/PF 2% SDV 5ML VIAL ONE (07:32)
[2020-12-02] MEDS ORDERED: BUPIVACAINE LIPOSOME/PF (EXPAREL) 266 MG/20 ML VIAL ONE (07:35)
[2020-12-02] MEDS ORDERED: LORATADINE 10 MG TABLET PO PRN (07:57)
[2020-12-02] MEDS ORDERED: ALPRAZolam 0.25 MG TABLET PO PRN (07:57)
[2020-12-02] MEDS ORDERED: MAGNESIUM HYDROX 2400MG/30ML ORAL SUSPENSION 30 ML CUP PO PRN (07:58)
[2020-12-02] MEDS ORDERED: MAG HYDROX/AL HYDROX/SIMETH 30 ML UNIT-DOSE CUP PO PRN (07:58)
[2020-12-02] MEDS ORDERED: LACTATED RINGERS SOLUTION 1,000 ML IV SCH ×2 (08:00→09:30)
[2020-12-02] MEDS ORDERED: ONDANSETRON 4 MG/2 ML VIAL IVPUSH PRN (09:19)
[2020-12-02] MEDS ORDERED: PATIENT'S OWN MEDICATION (NON-FORMULARY) (Lisinopril/Hydrochlorothiazide [Lisinopril-Hctz PO SCH (10:00)
[2020-12-02] MEDS: oxyCODONE HCL 5 MG TABLET PO PRN ×3 (12:01→19:46)
[2020-12-02] MEDS: ACETAMINOPHEN 500 MG TABLET (FP) PO SCH ×2 (12:02→17:34)
[2020-12-02] MEDS: MULTIVITAMINS (DAILY MVI) TABLET (FP) PO SCH (13:13)
[2020-12-02] MEDS: CEFAZOLIN 2 GM/D5W 2 GM/50 ML ML IVPB SCH (15:27)
[2020-12-02] MEDS: HYDROCHLOROTHIAZIDE 25 MG TABLET (FP) PO SCH (19:52)
[2020-12-02] MEDS: LISINOPRIL 20 MG TABLET PO SCH (19:53)
[2020-12-02] MEDS: oxyCODONE HCL 10 MG SUSTAINED ACTING TABLET PO SCH (21:09)
[2020-12-02] MEDS: PANTOPRAZOLE 40 MG TABLET PO SCH (21:09)
[2020-12-02] MEDS: SENNOSIDES/DOCUSATE COMBO (SENNA PLUS) TABLET (UD) PO SCH (21:09)
[2020-12-03] MEDS: CEFAZOLIN 2 GM/D5W 2 GM/50 ML ML IVPB SCH
[2020-12-03] MEDS: oxyCODONE HCL 5 MG TABLET PO PRN ×6 (01:55→19:26)
[2020-12-03] MEDS: ACETAMINOPHEN 500 MG TABLET (FP) PO SCH ×4 (06:28→17:45)
[2020-12-03] MEDS: LEVOTHYROXINE NA 100 MCG TABLET (FP) PO SCH (06:32)
[2020-12-03] MEDS ORDERED: SODIUM CHLORIDE 250 ML IV STA (07:10)
[2020-12-03] MEDS ORDERED: SODIUM CHLORIDE 1,000 ML IV SCH (07:15)
[2020-12-03 08:06] LABS: HEMATOCRIT 27.1 % (32.4-45.2); HEMOGLOBIN 8.9 GM/dl (10.7-15.3); MCH 28.3 pg (25.7-33.7); MCHC 32.9 g/dl (32.0-36.0); MEAN CELL VOLUME 86.2 fl (80-96); MEAN PLT VOLUME 9.1 fl (7.5-11.1); PLATELET COUNT 187 10^3/uL (134-434); RBC 3.14 M/mm3 (3.60-5.2); RDW 14.4 % (11.6-15.6); WHITE BLOOD COUNT 9.6 K/mm3 (4.0-10.8)
[2020-12-03 09:02] LABS: ALBUMIN 3.1 g/dl (3.4-5.0); BILIRUBIN,TOTAL 0.7 mg/dl (0.2-1); CALCIUM 8.4 mg/dl (8.5-10); CREATININE 0.6 mg/dl (0.55-1.3); MAGNESIUM 1.3 mg/dL (1.8-2.4); TOT PROT 5.5 g/dl (6.4-8.2)
[2020-12-03] MEDS: SENNOSIDES/DOCUSATE COMBO (SENNA PLUS) TABLET (UD) PO SCH ×2 (09:17→21:15)
[2020-12-03] MEDS: ESCITALOPRAM OXALATE 20 MG TABLET PO SCH (09:17)
[2020-12-03] MEDS: ASPIRIN 325 MG TABLET PO SCH (09:17)
[2020-12-03] MEDS: MULTIVITAMINS (DAILY MVI) TABLET (FP) PO SCH (09:17)
[2020-12-03] MEDS: KETOROLAC TROMETHAMINE 30 MG/1 ML VIAL IVPUSH SCH ×3 (09:18→21:14)
[2020-12-03] MEDS: PANTOPRAZOLE 40 MG TABLET PO SCH ×2 (09:19→21:15)
[2020-12-03] MEDS: oxyCODONE HCL 10 MG SUSTAINED ACTING TABLET PO SCH ×2 (11:34→21:15)
[2020-12-04] MEDS ORDERED: SODIUM CHLORIDE 250 ML IV STA ×2 (00:05→08:35)
[2020-12-04] MEDS: ACETAMINOPHEN 500 MG TABLET (FP) PO SCH ×3 (00:32→14:39)
[2020-12-04 01:45] LABS: BASO % 0.5 % (0-2.0); EOS % 3.5 % (0-4.5); HEMATOCRIT 27.7 % (32.4-45.2); HEMOGLOBIN 9.1 GM/dL (10.7-15.3); LYMPH % 12.7 % (8-40); MCH 28.2 pg (25.7-33.7); MEAN CELL VOLUME 85.4 fl (80-96); MEAN PLT VOLUME 9.3 fl (7.5-11.1); MONO % 7.4 % (3.8-10.2); NEUT % 75.9 % (42.8-82.8); PLATELET COUNT 228 10^3/uL (134-434); RBC 3.24 M/mm3 (3.60-5.2); RDW 15.2 % (11.6-15.6)
[2020-12-04] MEDS: KETOROLAC TROMETHAMINE 30 MG/1 ML VIAL IVPUSH SCH (03:10)
[2020-12-04] MEDS: LEVOTHYROXINE NA 100 MCG TABLET (FP) PO SCH (06:39)
[2020-12-04 08:12] LABS: HEMATOCRIT 24.9 % (32.4-45.2); HEMOGLOBIN 8.3 GM/dl (10.7-15.3); MCH 28.4 pg (25.7-33.7); MCHC 33.2 g/dl (32.0-36.0); MEAN CELL VOLUME 85.6 fl (80-96); MEAN PLT VOLUME 9.3 fl (7.5-11.1); PLATELET COUNT 183 10^3/uL (134-434); RBC 2.91 M/mm3 (3.60-5.2); RDW 14.4 % (11.6-15.6); WHITE BLOOD COUNT 13.9 K/mm3 (4.0-10.8)
[2020-12-04] MEDS: ASPIRIN 325 MG TABLET PO SCH (08:27)
[2020-12-04] MEDS ORDERED: SODIUM CHLORIDE 1,000 ML IV SCH (08:45)
[2020-12-04] MEDS: HYDROCHLOROTHIAZIDE 25 MG TABLET (FP) PO SCH (10:18)
[2020-12-04] MEDS: ESCITALOPRAM OXALATE 20 MG TABLET PO SCH (10:18)
[2020-12-04] MEDS: oxyCODONE HCL 10 MG SUSTAINED ACTING TABLET PO SCH (10:18)
[2020-12-04] MEDS: SENNOSIDES/DOCUSATE COMBO (SENNA PLUS) TABLET (UD) PO SCH (10:19)
[2020-12-04] MEDS: LISINOPRIL 20 MG TABLET PO SCH (10:19)
[2020-12-04] MEDS: PANTOPRAZOLE 40 MG TABLET PO SCH (10:19)
[2020-12-04] MEDS: MULTIVITAMINS (DAILY MVI) TABLET (FP) PO SCH (10:20)
[2020-12-04 13:42] VITALS: PULSE 102
[2020-12-04 13:43] VITALS: BP 110/57; TEMP 98.5
[2020-12-04] MEDS ORDERED: MAGNESIUM SULF 50% (8.12 MEQ/2 ML-1 GM VIAL) IVPB ONE (13:44)
[2020-12-04] MEDS ORDERED: SODIUM CHLORIDE 1 GM TABLET PO ONE (14:00)
[2020-12-04] MEDS ORDERED: MAGNESIUM SULFATE IN WATER 2 GM/50 ML IVPB IVPB ONE (14:00)
[2020-12-04] MEDS: oxyCODONE HCL 5 MG TABLET PO PRN (14:40)
[2020-12-04 17:33] LABS: CREATININE 0.8 mg/dl (0.55-1.3)
== END 2020-12-04 18:31 | disposition home health service (06) ==
LOC: FASUSAT 05:59 → EDSTATUS 08:00 → FM/S 11:48 → FASUSAT 12-04 18:31
PROVIDERS: ATTEND Orthopaedic Surgery
PROC: 8E0YXBZ Computer Assisted Procedure of Lower Extremity (ICD-10-PCS; 2020-12-02)
PROC: 8E0Y0CZ Robotic Assisted Procedure of Lower Extremity, Open Approach (ICD-10-PCS; 2020-12-02)
PROC: 0SR90J9 Replacement of Right Hip Joint with Synthetic Substitute, Cemented, Open Approach (ICD-10-PCS; principal; 2020-12-02 08:20)
DX: M16.11 Unilateral primary osteoarthritis, right hip (principal)
CPT/HCPCS: 20985; 27130; C1776; S2900; 36415; 71045-TC-FY; 73502-TC-RT-FY; 80048; 80053; 81003; 83735; 85025; 85027; 94760; 97010-GP; 97116-GP; 97163-GP

== ENCOUNTER 2021-06-26 08:19 | Day surgery (SDC) | payer OTHER ==
[2021-06-22 14:01] VITALS: BMI 30.2
[2021-06-26 08:29] VITALS: TEMP 98.3
[2021-06-26] MEDS ORDERED: PROPOFOL 20 ML ONE ×4 (08:42)
[2021-06-26] MEDS ORDERED: LIDOCAINE HCL/PF 2% SDV 5ML VIAL ONE (08:42)
[2021-06-26 10:53] VITALS: BP 103/75; PULSE 85
== END 2021-06-26 10:52 | disposition home or self-care (01) ==
LOC: FASU-ENDO 08:19
PROVIDERS: ATTEND Internal Medicine Gastroenterology
PROC: 0DB68ZX Excision of Stomach, Via Natural or Artificial Opening Endoscopic, Diagnostic (ICD-10-PCS; 2021-06-26)
PROC: 0DB38ZX Excision of Lower Esophagus, Via Natural or Artificial Opening Endoscopic, Diagnostic (ICD-10-PCS; 2021-06-26)
PROC: 0DB98ZX Excision of Duodenum, Via Natural or Artificial Opening Endoscopic, Diagnostic (ICD-10-PCS; principal; 2021-06-26 10:14)
DX: K29.50 Unspecified chronic gastritis without bleeding (principal); K21.00 Gastro-esophageal reflux disease with esophagitis, without bleeding; R10.13 Epigastric pain; R10.31 Right lower quadrant pain
CPT/HCPCS: 88305-TC; 88342-TC

== ENCOUNTER 2022-04-23 09:43 | Day surgery (SDC) | payer OTHER ==
[2022-04-16 11:45] VITALS: BMI 29.2
[2022-04-23] MEDS ORDERED: PROPOFOL 80 ML ONE (10:33)
[2022-04-23 11:30] VITALS: TEMP 97.7
[2022-04-23 12:11] VITALS: BP 105/65; PULSE 84; RESP 18
== END 2022-04-23 12:12 | disposition home or self-care (01) ==
LOC: FASU-ENDO 09:43
PROVIDERS: ATTEND Internal Medicine Gastroenterology
PROC: 0DJD8ZZ Inspection of Lower Intestinal Tract, Via Natural or Artificial Opening Endoscopic (ICD-10-PCS; principal; 2022-04-23 11:12)
DX: Z12.11 Encounter for screening for malignant neoplasm of colon (principal); K57.30 Diverticulosis of large intestine without perforation or abscess without bleeding; K64.1 Second degree hemorrhoids